=== PATIENT | female | born 1940 | race Caucasian/White ===

== ENCOUNTER → 2023-07-15 14:11 | Outpatient (REF) | payer MEDICARE, OTHER, SELFPAY | LOC: HWRAD 14:11 | PROVIDERS: ATTENDING PHYSICIAN Family Medicine | DX: R05.9 Cough, unspecified (principal) | CPT/HCPCS: 71046 ==

== ENCOUNTER → 2024-01-07 13:35 | Outpatient (REF) | payer MEDICARE, OTHER, SELFPAY | LOC: HWRAD 13:35 | PROVIDERS: ATTENDING PHYSICIAN Family Medicine | DX: M94.0 Chondrocostal junction syndrome [Tietze] (principal) | CPT/HCPCS: 71046 ==

== ENCOUNTER → 2025-02-14 13:00 | Outpatient (REF) | payer MEDICARE, OTHER, SELFPAY | LOC: RAD 13:00 | PROVIDERS: ATTENDING PHYSICIAN Student in an Organized Health Care Education/Training Program | DX: Z13.820 Encounter for screening for osteoporosis (principal); Z78.0 Asymptomatic menopausal state | CPT/HCPCS: 77080 ==